=== PATIENT | male | born 1990 | race Caucasian/White ===

== ENCOUNTER → 2021-01-03 | Day surgery (SDC) | payer OTHER ==
[~2021-01-03] MED LIST: DEXAMETHASONE SOD PHOS INJ 4 MG/ML SDV ONE; EPINEPHRINE HCL 1:1000 1ML 1 MG/ML AMP ONE; FENTANYL CITRATE/PF 100MCG/2 ML INJ ONE; GLYCOPYRROLATE INJ 0.2 MG/ML VIAL ONE; KETOROLAC TROMETHAMINE 30 MG/ML VIAL ONE; LIDOCAINE 1% W/EPINEPHRINE 20 ML VIAL ONE; LIDOCAINE HCL 2% LOCAL INJ 5 ML SDV VIAL INJ ONE; MIDAZOLAM HCL 2 MG/2 ML VIAL ONE; NEOSTIGMINE 1 MG/ML 10ML VIAL ONE; ONDANSETRON HCL INJ 2MG/ML 2ML 2 MG/ML VIAL ONE; POVIDONE IODINE 0.05% 0.05 % ML PO ONE; PROPOFOL IV EMULSION 10 MG/ML 20 ML VIAL ONE; ROCURONIUM BROMIDE 10 MG/ML 5ML VIAL IV ONE; SEVOFLURANE INHAL SOLN 250 ML PEN BTL ONE
[2021-01-03 09:57] VITALS: BP 112/72
== END | disposition home or self-care (01) ==
LOC: OR 05:21
PROVIDERS: ATTEND Otolaryngology Otolaryngology/Facial Plastic Surgery
DX: J32.0 Chronic maxillary sinusitis (principal); J32.3 Chronic sphenoidal sinusitis; J32.2 Chronic ethmoidal sinusitis; J33.0 Polyp of nasal cavity; F17.220 Nicotine dependence, chewing tobacco, uncomplicated; Z01.812 Encounter for preprocedural laboratory examination; Z20.822 Contact with and (suspected) exposure to COVID-19
CPT/HCPCS: 31253; 31259; 31267; 88304; J0171; J1100; J1885; J2001; J2405; J2704; J2710; U0002; J2250; J3010

== ENCOUNTER → 2024-04-28 | Day surgery (SDC) | payer OTHER ==
[~2024-04-28] MED LIST changes: +ACETAMINOPHEN 1000 MG/100 ML 100 ML IV ONE; +ARIMIDEX1 MG PO; +CIALIS5 MG PO; +ESTRADOL INJ; +EYE LUBRICANT OPTH OINT 3.5GM TUBE OP ONE; -GLYCOPYRROLATE INJ 0.2 MG/ML VIAL ONE; -KETOROLAC TROMETHAMINE 30 MG/ML VIAL ONE; -LIDOCAINE 1% W/EPINEPHRINE 20 ML VIAL ONE; -NEOSTIGMINE 1 MG/ML 10ML VIAL ONE; +OVIDREL250 MCG/0. INJ; +OZEMPIC0.25 MG/02 INJ; -POVIDONE IODINE 0.05% 0.05 % ML PO ONE; +ROCURONIUM BROMIDE 1 ML IV ONE; -ROCURONIUM BROMIDE 10 MG/ML 5ML VIAL IV ONE; +SUGAMMADEX SODIUM 200 MG/2 ML VIAL IV ONE; +TESTOSTERO100 MG/1 M INJ; +VITAMIN D PO; +ZINC PO; +ZYRTEC10 M3 PO
[2024-04-28] MEDS: LACTATED RINGER'S 1,000 ML ONE (08:34)
[2024-04-28 11:44] VITALS: TEMP 97.1
[2024-04-28] MEDS: FENTANYL CITRATE/PF 100MCG/2 ML INJ ONE (12:15)
[2024-04-28 13:10] VITALS: BP 136/86; RESP 18; O2SAT 98
== END | disposition home or self-care (01) ==
LOC: OR 07:27
PROVIDERS: ATTEND Otolaryngology Otolaryngology/Facial Plastic Surgery
DX: J32.1 Chronic frontal sinusitis (principal); J32.3 Chronic sphenoidal sinusitis; J32.2 Chronic ethmoidal sinusitis; J32.0 Chronic maxillary sinusitis; J34.89 Other specified disorders of nose and nasal sinuses; J33.9 Nasal polyp, unspecified; F17.220 Nicotine dependence, chewing tobacco, uncomplicated; Z79.85 Long-term (current) use of injectable non-insulin antidiabetic drugs; Z79.899 Other long term (current) drug therapy
CPT/HCPCS: 31259; 31267; 31276; 88304; J0131; J0171; J1100; J2003; J2250; J2405; J2704; J3010; J7121